=== PATIENT | female | born 1965 | race Caucasian/White ===

== ENCOUNTER 2018-04-28 12:23 | Inpatient (IN) | payer BC ==
[2018-04-28 12:32] LABS: O2 DELIVERY DEVICE ROOM AIR
[2018-04-28 13:02] LABS: O2 SATURATION ARTERIAL 74 % (95-98); PCO2 ARTERIAL 57 mm/Hg0 (35-45); PO2 ARTERIAL 41 mm/Hg (80-100)
[2018-04-28] MEDS ORDERED: Acetaminophen 325 MG Tab PO PRN (14:15)
[2018-04-28] MEDS ORDERED: Albuterol 8 GM Inhaler INH PRN (14:23)
[2018-04-28] MEDS: methylPREDNISolone Sodium Succinate 125 MG/2 ML SDV IVPUSH SCH (14:42)
[2018-04-28] MEDS: Nicotine 21 MG/24 Hr Patch TRDERM SCH (14:43)
[2018-04-28] MEDS: Enoxaparin 30 MG/0.3 ML Syringe SUBCUT SCH (14:43)
[2018-04-28] MEDS ORDERED: Levofloxacin/Dextrose 5%-Water 500 MG in Premix Bag 1 BAG IV ONE (14:45)
[2018-04-28] MEDS: Albuterol/Ipratropium 3.0-0.5 MG/3 ML Neb Soln NEB SCH ×2 (15:03→19:33)
[2018-04-28] MEDS: Sodium Chloride 0.9% 1,000 ML IV SCH (16:12)
[2018-04-28] MEDS: Formoterol/Mometasone 200-5 MCG 8.8 GM Inhaler IH SCH (19:34)
[2018-04-29] MEDS: Sodium Chloride 0.9% 1,000 ML IV SCH ×2 (04:40→19:39)
[2018-04-29] MEDS ORDERED: Albuterol 0.083% 2.5 MG/3 ML Neb Soln NEB PRN (08:45)
--- NOTE | 2018-04-29 08:51 | PCM.PN ---
- General Info Date of Service: 04/29/18 Admission Dx/Problem (Free Text): COPD Exacerbation URI Functional Status: Reports: Pain Controlled, Tolerating Diet. Denies: Ambulating - Review of Systems General: Reports: Weakness, Fatigue, Malaise. Denies: Fever HEENT: Reports: Sinus Congestion, Sore Throat Pulmonary: Reports: Shortness of Breath, Cough Cardiovascular: Denies: Chest Pain, Edema, Lightheadedness Gastrointestinal: Denies: Abdominal Pain, Nausea, Vomiting Genitourinary: Reports: No Symptoms Musculoskeletal: Reports: No Symptoms Skin: Reports: No Symptoms Neurological: Reports: No Symptoms - Patient Data Vitals - Most Recent: Last Vital Signs Temp 96.5 F 04/29/18 07:46 Pulse 83 04/29/18 07:46 Resp 18 04/29/18 07:46 BP 106/69 04/29/18 07:46 Pulse Ox 100 04/29/18 07:46 Weight - Most Recent: 86 lb I&O - Last 24 Hours: Intake & Output 04/28/18 04/29/18 04/29/18 22:59 06:59 14:59 Intake Total 935 Balance 935 Lab Results Last 24 Hours: Laboratory Results - last 24 hr 04/28/18 04/28/18 04/28/18 Range/Units 12:31 12:31 12:31 WBC 5.2 (5.0-10.0) 10^3/uL RBC 4.32 (4.00-5.50) 10^6/uL Hgb 14.8 (12.0-16.0) g/dL Hct 43.3 (37.0-47.0) % MCV 100.2 H (82.0-94.0) fL MCH 34.3 H (27.0-32.0) pg MCHC 34.2 (33.0-38.0) g/dL RDW Coeff of Talia 11.7 (11.0-15.0) % Plt Count 187 (150-400) 10^3/uL Neut % (Auto) 72.0 (35-85) % Lymph % (Auto) 16.3 (10-55) % [place] % (Auto) 10.9 (0-16) % Eos % (Auto) 0.6 (0-5) % Baso % (Auto) 0.2 (0-3) % Neut # (Auto) 3.76 (1.80-7.00) 10^3/uL Lymph # (Auto) 0.85 L (1.00-4.80) 10^3/uL [place] # (Auto) 0.57 (0.00-0.80) 10^3/uL Eos # (Auto) 0.03 (0.00-0.45) 10^3/uL Baso # (Auto) 0.01 10^3/uL D-Dimer, Quantitative (0.00-0.50) ABG pH 7.40 (7.35-7.45) ABG pCO2 57 H (35-45) mm/Hg0 ABG pO2 41 L (80-100) mm/Hg ABG HCO3 35.0 H (22.0-26.0) mm/L ABG O2 Saturation 74 L (95-98) % ABG Base Excess 10.0 H (-2.0-3.0) O2 Delivery Device Room air C-Reactive Protein 0.8 (0.2-0.8) mg/dL 04/28/18 Range/Units 14:30 WBC (5.0-10.0) 10^3/uL RBC (4.00-5.50) 10^6/uL Hgb (12.0-16.0) g/dL Hct (37.0-47.0) % MCV (82.0-94.0) fL MCH (27.0-32.0) pg MCHC (33.0-38.0) g/dL RDW Coeff of Talia (11.0-15.0) % Plt Count (150-400) 10^3/uL Neut % (Auto) (35-85) % Lymph % (Auto) (10-55) % [place] % (Auto) (0-16) % Eos % (Auto) (0-5) % Baso % (Auto) (0-3) % Neut # (Auto) (1.80-7.00) 10^3/uL Lymph # (Auto) (1.00-4.80) 10^3/uL [place] # (Auto) (0.00-0.80) 10^3/uL Eos # (Auto) (0.00-0.45) 10^3/uL Baso # (Auto) 10^3/uL D-Dimer, Quantitative < 0.19 (0.00-0.50) ABG pH (7.35-7.45) ABG pCO2 (35-45) mm/Hg0 ABG pO2 (80-100) mm/Hg ABG HCO3 (22.0-26.0) mm/L ABG O2 Saturation (95-98) % ABG Base Excess (-2.0-3.0) O2 Delivery Device C-Reactive Protein (0.2-0.8) mg/dL Med Orders - Current: Current Medications Acetaminophen (Tylenol) 650 mg PO Q4H PRN PRN Reason: Pain (Mild 1-3)/fever Albuterol (Ventolin Hfa) 0 gm INH QID PRN PRN Reason: Shortness of Breath Last Admin: 04/29/18 04:43 Dose: 2 puff Albuterol/Ipratropium (Duoneb 3.0-0.5 Mg/3 Ml) 3 ml NEB QIDRT [facility] Last Admin: 04/28/18 19:33 Dose: 3 ml Enoxaparin Sodium (Lovenox) 30 mg SUBCUT Q24H [facility] Last Admin: 04/28/18 14:43 Dose: 30 mg Levofloxacin/Dextrose 500 mg/ (Premix) 100 mls @ 100 mls/hr IV Q24H [facility] Sodium Chloride (Normal Saline) 1,000 mls @ 75 mls/hr IV ASDIRECTED [facility] Last Admin: 04/29/18 04:40 Dose: 75 mls/hr Methylprednisolone Sodium Succinate (Solu-Medrol) 62.5 mg IVPUSH Q24H [facility] Last Admin: 04/28/18 14:42 Dose: 62.5 mg Mometasone Furoate/Formoterol Fumar (Dulera 200-5 Mcg) 2 puff IH BIDRT [facility] Last Admin: 04/28/18 19:34 Dose: 2 puff Nicotine (Habitrol) 21 mg TRDERM DAILY [facility] Last Admin: 04/28/18 14:43 Dose: Not Given Discontinued Medications Levofloxacin/Dextrose 500 mg/ (Premix) 100 mls @ 100 mls/hr IV ONETIME ONE Stop: 04/28/18 15:44 Last Admin: 04/28/18 14:43 Dose: 100 mls/hr - Exam Quality Assessment: Supplemental Oxygen General: Alert, Oriented HEENT: Mucous Membr. Moist/[place] Neck: Supple Lungs: Decreased Breath Sounds, Other (increased work of breathing.) Cardiovascular: Regular Rate, Regular Rhythm GI/Abdominal Exam: Normal Bowel Sounds, Soft, Non-Tender Extremities: Normal Inspection, No Pedal Edema Skin: Warm, Dry Neurological: No New Focal Deficit - Problem List & Annotations (1) COPD exacerbation SNOMED Code(s): 521012710 Code(s): J44.1 - CHRONIC OBSTRUCTIVE PULMONARY DISEASE W (ACUTE) EXACERBATION Status: Acute Priority: High Current Visit: Yes (2) URI (upper respiratory infection) SNOMED Code(s): 30867094 Code(s): J06.9 - ACUTE UPPER RESPIRATORY INFECTION, UNSPECIFIED Status: Acute Priority: High Current Visit: Yes - Problem List Review Problem List Initiated/Reviewed/Updated: Yes - Assessment Assessment:: COPD Exacerbation URI - Plan Plan:: Patient continues to have increased work of breathing with eating, ambulating, conversation. She does have an ongoing cough, admits to wheezing at times. Oxygen sats 97-100% on 3 liters. No fever. Lung sounds diminished throughout. Will continue with IV Levaquin and Solu Medrol. Repeat labs this am. Continue to wean off oxygen to maintain sats. Inappropriate for discharge.
[2018-04-29 09:05] LABS: CHLORIDE,CL 106 mEq/L (98-106); SODIUM,NA 145 mEq/L (136-145)
[2018-04-29] MEDS: Albuterol/Ipratropium 3.0-0.5 MG/3 ML Neb Soln NEB SCH ×4 (09:06→19:39)
[2018-04-29] MEDS: Formoterol/Mometasone 200-5 MCG 8.8 GM Inhaler IH SCH ×2 (09:06→19:39)
[2018-04-29] MEDS: Nicotine 21 MG/24 Hr Patch TRDERM SCH (09:07)
[2018-04-29] MEDS ORDERED: Ibuprofen 200 MG Tab PO PRN (12:12)
[2018-04-29] MEDS: Levofloxacin/Dextrose 5%-Water 500 MG in Premix Bag 1 BAG IV SCH (13:39)
[2018-04-29] MEDS: methylPREDNISolone Sodium Succinate 125 MG/2 ML SDV IVPUSH SCH (13:39)
[2018-04-29] MEDS: Enoxaparin 30 MG/0.3 ML Syringe SUBCUT SCH (13:39)
[2018-04-30] MEDS: Albuterol/Ipratropium 3.0-0.5 MG/3 ML Neb Soln NEB SCH ×4 (07:19→19:54)
[2018-04-30] MEDS: Formoterol/Mometasone 200-5 MCG 8.8 GM Inhaler IH SCH ×2 (07:19→19:54)
[2018-04-30] MEDS: Nicotine 21 MG/24 Hr Patch TRDERM SCH (08:33)
--- NOTE | 2018-04-30 09:05 | PCM.PN ---
- General Info Date of Service: 04/30/18 Admission Dx/Problem (Free Text): COPD Exacerbation URI Functional Status: Reports: Pain Controlled, Tolerating Diet. Denies: Ambulating - Review of Systems General: Reports: Weakness, Fatigue. Denies: Fever, Malaise HEENT: Reports: No Symptoms Pulmonary: Reports: Shortness of Breath, Cough. Denies: Sputum Cardiovascular: Denies: Chest Pain, Edema, Lightheadedness Gastrointestinal: Denies: Abdominal Pain, Nausea, Vomiting Genitourinary: Reports: No Symptoms Musculoskeletal: Reports: No Symptoms Skin: Reports: No Symptoms Neurological: Reports: No Symptoms - Patient Data Vitals - Most Recent: Last Vital Signs Temp 95.2 F L 04/30/18 07:15 Pulse 101 H 04/30/18 07:15 Resp 19 04/30/18 07:15 BP 106/55 L 04/30/18 07:15 Pulse Ox 100 04/30/18 07:15 Weight - Most Recent: 86 lb I&O - Last 24 Hours: Intake & Output 04/29/18 04/30/18 04/30/18 22:59 06:59 14:59 Intake Total 1000 Balance 1000 Lab Results Last 24 Hours: Laboratory Results - last 24 hr 04/29/18 Range/Units 08:55 Sodium 145 (136-145) mEq/L Potassium 4.2 (3.5-5.0) mEq/L Chloride 106 (98-106) mEq/L Carbon Dioxide 36 H (21-32) mmol/L BUN 5 L (7-18) mg/dL Creatinine 0.5 L (0.6-1.0) mg/dL Est Cr Clr Drug Dosing 81.05 mL/min Estimated GFR (MDRD) > 60 (>=60) mL/min Glucose 101 H (75-99) mg/dL Calcium 8.2 L (8.4-10.1) mg/dL C-Reactive Protein 0.6 (0.2-0.8) mg/dL Med Orders - Current: Current Medications Acetaminophen (Tylenol) 650 mg PO Q4H PRN PRN Reason: Pain (Mild 1-3)/fever Albuterol (Ventolin Hfa) 0 gm INH QID PRN PRN Reason: Shortness of Breath Last Admin: 04/29/18 04:43 Dose: 2 puff Albuterol (Proventil Neb Soln) 2.5 mg NEB Q4H PRN PRN Reason: Dyspnea Albuterol/Ipratropium (Duoneb 3.0-0.5 Mg/3 Ml) 3 ml NEB QIDRT [facility] Last Admin: 04/30/18 07:19 Dose: 3 ml Enoxaparin Sodium (Lovenox) 30 mg SUBCUT Q24H [facility] Last Admin: 04/29/18 13:39 Dose: 30 mg Levofloxacin/Dextrose 500 mg/ (Premix) 100 mls @ 100 mls/hr IV Q24H [facility] Last Admin: 04/29/18 13:39 Dose: 100 mls/hr Sodium Chloride (Normal Saline) 1,000 mls @ 75 mls/hr IV ASDIRECTED [facility] Last Admin: 04/29/18 19:39 Dose: 75 mls/hr Ibuprofen (Motrin) 400 mg PO Q6H PRN PRN Reason: Headache Last Admin: 04/29/18 12:34 Dose: 400 mg Methylprednisolone Sodium Succinate (Solu-Medrol) 62.5 mg IVPUSH Q24H [facility] Last Admin: 04/29/18 13:39 Dose: 62.5 mg Mometasone Furoate/Formoterol Fumar (Dulera 200-5 Mcg) 2 puff IH BIDRT [facility] Last Admin: 04/30/18 07:19 Dose: 2 puff Nicotine (Habitrol) 21 mg TRDERM DAILY [facility] Last Admin: 04/30/18 08:33 Dose: Not Given Discontinued Medications Levofloxacin/Dextrose 500 mg/ (Premix) 100 mls @ 100 mls/hr IV ONETIME ONE Stop: 04/28/18 15:44 Last Admin: 04/28/18 14:43 Dose: 100 mls/hr - Exam Quality Assessment: Supplemental Oxygen General: Alert, Oriented HEENT: Mucous Membr. Moist/[place] Neck: Supple Lungs: Decreased Breath Sounds, Wheezing Cardiovascular: Regular Rate, Regular Rhythm GI/Abdominal Exam: Normal Bowel Sounds, Soft, Non-Tender Extremities: Normal Inspection, No Pedal Edema Skin: Warm, Dry Neurological: No New Focal Deficit - Problem List & Annotations (1) COPD exacerbation SNOMED Code(s): 304038786 Code(s): J44.1 - CHRONIC OBSTRUCTIVE PULMONARY DISEASE W (ACUTE) EXACERBATION Status: Acute Priority: High Current Visit: Yes (2) URI (upper respiratory infection) SNOMED Code(s): 59750236 Code(s): J06.9 - ACUTE UPPER RESPIRATORY INFECTION, UNSPECIFIED Status: Acute Priority: High Current Visit: Yes Qualifiers: URI type: unspecified viral URI Qualified Code(s): J06.9 - Acute upper respiratory infection, unspecified - Problem List Review Problem List Initiated/Reviewed/Updated: Yes - My Orders Last 24 Hours: My Active Orders 04/29/18 08:45 RT Aerosol Therapy [RC] ASDIRECTED Albuterol [Proventil Neb Soln] 2.5 mg NEB Q4H PRN 04/29/18 12:12 Ibuprofen [Motrin] 400 mg PO Q6H PRN 05/01/18 05:11 BASIC METABOLIC PANEL,BMP [CHEM] Routine CBC WITH AUTO DIFF [HEME] Routine VITAMIN B12 [CHEM] Routine - Assessment Assessment:: COPD Exacerbation URI - Plan Plan:: Patient continues to have increased work of breathing with eating, ambulating, conversation. She does have an ongoing cough, admits to wheezing at times. Oxygen sats 97-100% on 3 liters. No fever. Lung sounds diminished throughout. Will continue with IV Levaquin and Solu Medrol. Repeat labs this am. Continue to wean off oxygen to maintain sats. Inappropriate for discharge. 04-30-2018 Patient admits to feeling better today. Does still get tachypneic with eating and ambulating. Ongoing cough, nonproductive at this time. Have weaned her down to 1 1/2 liters of oxygen today, maintaining at 97%. Will continue to wean. Lung sound do have better air exchange today, still noted to have expiratory wheezing. Will continue with IV Levaquin and Solu Medrol. Will obtain a B12 and folic acid level due to high MCV. Encourage ambulation. Possible discharge tomorrow if able to be weaned down off the O2.
[2018-04-30] MEDS: Sodium Chloride 0.9% 1,000 ML IV SCH ×2 (09:11→23:24)
[2018-04-30] MEDS: methylPREDNISolone Sodium Succinate 125 MG/2 ML SDV IVPUSH SCH (13:32)
[2018-04-30] MEDS: Levofloxacin/Dextrose 5%-Water 500 MG in Premix Bag 1 BAG IV SCH (13:33)
[2018-04-30] MEDS: Enoxaparin 30 MG/0.3 ML Syringe SUBCUT SCH (13:34)
[2018-05-01] MEDS: Albuterol/Ipratropium 3.0-0.5 MG/3 ML Neb Soln NEB SCH ×2 (07:26→12:12)
[2018-05-01] MEDS: Formoterol/Mometasone 200-5 MCG 8.8 GM Inhaler IH SCH (07:28)
[2018-05-01 08:04] LABS: CHLORIDE,CL 107 mEq/L (98-106); SODIUM,NA 144 mEq/L (136-145)
[2018-05-01 12:01] VITALS: BP 116/61
[2018-05-01] MEDS: Nicotine 21 MG/24 Hr Patch TRDERM SCH (12:12)
--- NOTE | 2018-05-01 21:47 | PCM.DCSUM1 ---
Discharge Summary - Hospital Course Free Text/Narrative:: Patient presented to clinic to see Yvette Moy with increased chest congestion and cough. Had been taking OTC meds and her inhalers without getting much relief. Much increased shortness of breath versus her usual. She had noted increased wheezing and tightness in her chest. No fevers. CXR and labs done, essentially negative. Admitted for COPD Exacerbation. Started her on IV Levaquin, Solu Medrol and DuoNebs. ABGs show PO2 of 57. Negative d-dimer. Diagnosis: Stroke: No - Discharge Data Discharge Date: 05/01/18 Discharge Disposition: Home, Self-Care 01 Condition: Good - Discharge Diagnosis/Problem(s) (1) COPD exacerbation SNOMED Code(s): 982986174 ICD Code: J44.1 - CHRONIC OBSTRUCTIVE PULMONARY DISEASE W (ACUTE) EXACERBATION Status: Acute Priority: High (2) URI (upper respiratory infection) SNOMED Code(s): 47335324 ICD Code: J06.9 - ACUTE UPPER RESPIRATORY INFECTION, UNSPECIFIED Status: Acute Priority: High Qualifiers: URI type: unspecified viral URI Qualified Code(s): J06.9 - Acute upper respiratory infection, unspecified - Patient Summary/Data Complications: none Hospital Course: Patient has had improvement overall of her status since admission. Has much better air exchange, less wheezing since admission. Is ambulating in the halls , tolerating, but oxygen sats continue to drop while up. Unable to wean her off the oxygen. Able to maintain in the 90s with 1 liter of oxygen. Afebrile. Appetite fair. Labs have remained stable. Discussion has been held with her involving smoking cessation. Was given information for the smoking hotline. - Patient Instructions Diet: Usual Diet as Tolerated Activity: As Tolerated - Discharge Plan *PRESCRIPTION DRUG MONITORING PROGRAM REVIEWED*: No *COPY OF PRESCRIPTION DRUG MONITORING REPORT IN PATIENT ALANIS: No Prescriptions/Med Rec: Albuterol/Ipratropium [DuoNeb 3.0-0.5 MG/3 ML] 3 ml NEB QIDRT #1 box Levofloxacin [Levaquin] 500 mg PO DAILY #7 tab predniSONE [Prednisone] 20 mg PO DAILY #10 tablet Roflumilast [Daliresp] 250 mcg PO DAILY #28 tablet Home Medications: Home Meds Albuterol Sulfate [Proair Hfa] 2 puff INH QID PRN 04/28/18 [History] Budesonide/Formoterol Fumarate [Symbicort 160-4.5 Mcg Inhaler] 2 puff INH BID [History] Albuterol/Ipratropium [DuoNeb 3.0-0.5 MG/3 ML] 3 ml NEB QIDRT #1 box 05/01/18 [ Rx] Levofloxacin [Levaquin] 500 mg PO DAILY #7 tab 05/01/18 [Rx] Roflumilast [Daliresp] 250 mcg PO DAILY #28 tablet 05/01/18 [Rx] predniSONE [Prednisone] 20 mg PO DAILY #10 tablet 05/01/18 [Rx] Patient Handouts: Chronic Obstructive Pulmonary Disease, Upper Respiratory Infection, Adult Referrals: Yvette Moy PA-C [Primary Care Provider] - (Follow up with Yvette Moy in one week) - Discharge Summary/Plan Comment DC Time >30 min.: No Discharge Summary/Plan Comment: Patient will be discharged home on oxygen. She does drop to 88% on room air and as low as 74% with ambulating. Will need home oxygen to maintain her sats over 90%. Does require 2 liters at rest, 3 liters with activity. Continue DuoNebs QID Start Daliresp.. samples given Levaquin 500 mg daily fo r7 days Prednisone 40 mg daily for 5 days Consider switching to Spiriva at some point instead of DuoNebs Consider referral to pulmonology at her follow up visit with Yvette Moy next week. - General Info Date of Service: 05/01/18 Admission Dx/Problem (Free Text: COPD Exacerbation URI Functional Status: Reports: Pain Controlled, Tolerating Diet, Ambulating - Review of Systems General: Reports: Weakness, Fatigue. Denies: Fever HEENT: Reports: Sinus Congestion Pulmonary: Reports: Shortness of Breath, Cough, Wheezing Cardiovascular: Denies: Chest Pain, Edema, Lightheadedness Gastrointestinal: Denies: Abdominal Pain, Nausea, Vomiting Genitourinary: Reports: No Symptoms Musculoskeletal: Reports: No Symptoms Skin: Reports: No Symptoms Neurological: Reports: No Symptoms - Patient Data Vitals - Most Recent: Last Vital Signs Temp 98.3 F 05/01/18 12:00 Pulse 80 05/01/18 12:00 Resp 16 05/01/18 12:00 BP 116/61 05/01/18 12:00 Pulse Ox 95 05/01/18 12:00 Weight - Most Recent: 86 lb Lab Results - Last 24 hrs: Laboratory Results - last 24 hr 05/01/18 05/01/18 Range/Units 07:05 07:05 WBC 5.4 (5.0-10.0) 10^3/uL RBC 3.72 L (4.00-5.50) 10^6/uL Hgb 12.3 (12.0-16.0) g/dL Hct 38.5 (37.0-47.0) % MCV 103.5 H (82.0-94.0) fL MCH 33.1 H (27.0-32.0) pg MCHC 31.9 L (33.0-38.0) g/dL RDW Coeff of Talia 11.6 (11.0-15.0) % Plt Count 204 (150-400) 10^3/uL Neut % (Auto) 60.1 (35-85) % Lymph % (Auto) 26.6 (10-55) % [place] % (Auto) 11.4 (0-16) % Eos % (Auto) 1.7 (0-5) % Baso % (Auto) 0.2 (0-3) % Neut # (Auto) 3.23 (1.80-7.00) 10^3/uL Lymph # (Auto) 1.43 (1.00-4.80) 10^3/uL [place] # (Auto) 0.61 (0.00-0.80) 10^3/uL Eos # (Auto) 0.09 (0.00-0.45) 10^3/uL Baso # (Auto) 0.01 10^3/uL Sodium 144 (136-145) mEq/L Potassium 3.9 (3.5-5.0) mEq/L Chloride 107 H (98-106) mEq/L Carbon Dioxide 35 H (21-32) mmol/L BUN 7 (7-18) mg/dL Creatinine 0.4 L (0.6-1.0) mg/dL Est Cr Clr Drug Dosing 101.31 mL/min Estimated GFR (MDRD) > 60 (>=60) mL/min Glucose 99 (75-99) mg/dL Calcium 8.1 L (8.4-10.1) mg/dL Vitamin B12 599 (193-986) PG/ML Med Orders - Current: Current Medications Discontinued Medications Acetaminophen (Tylenol) 650 mg PO Q4H PRN PRN Reason: Pain (Mild 1-3)/fever Albuterol (Ventolin Hfa) 0 gm INH QID PRN PRN Reason: Shortness of Breath Last Admin: 04/29/18 04:43 Dose: 2 puff Albuterol (Proventil Neb Soln) 2.5 mg NEB Q4H PRN PRN Reason: Dyspnea Albuterol/Ipratropium (Duoneb 3.0-0.5 Mg/3 Ml) 3 ml NEB QIDRT [facility] Last Admin: 05/01/18 12:12 Dose: 3 ml Enoxaparin Sodium (Lovenox) 30 mg SUBCUT Q24H [facility] Last Admin: 04/30/18 13:34 Dose: 30 mg Levofloxacin/Dextrose 500 mg/ (Premix) 100 mls @ 100 mls/hr IV Q24H [facility] Last Admin: 04/30/18 13:33 Dose: 100 mls/hr Sodium Chloride (Normal Saline) 1,000 mls @ 75 mls/hr IV ASDIRECTED [facility] Last Admin: 04/30/18 23:24 Dose: 75 mls/hr Levofloxacin/Dextrose 500 mg/ (Premix) 100 mls @ 100 mls/hr IV ONETIME ONE Stop: 04/28/18 15:44 Last Admin: 04/28/18 14:43 Dose: 100 mls/hr Ibuprofen (Motrin) 400 mg PO Q6H PRN PRN Reason: Headache Last Admin: 04/29/18 12:34 Dose: 400 mg Methylprednisolone Sodium Succinate (Solu-Medrol) 62.5 mg IVPUSH Q24H [facility] Last Admin: 04/30/18 13:32 Dose: 62.5 mg Mometasone Furoate/Formoterol Fumar (Dulera 200-5 Mcg) 2 puff IH BIDRT [facility] Last Admin: 05/01/18 07:28 Dose: 2 puff Nicotine (Habitrol) 21 mg TRDERM DAILY [facility] Last Admin: 05/01/18 12:12 Dose: Not Given - Exam Quality Assessment: Reports: Supplemental Oxygen General: Reports: Alert, Oriented HEENT: Reports: Mucous Membr. Moist/[place] Neck: Reports: Supple Lungs: Reports: Decreased Breath Sounds, Wheezing Cardiovascular: Reports: Regular Rate, Regular Rhythm GI/Abdominal Exam: Normal Bowel Sounds, Soft, Non-Tender Skin: Reports: Warm, Dry Neurological: Reports: No New Focal Deficit
== END 2018-05-01 13:05 | disposition home or self-care (01) | DRG 140 ==
LOC: CC.MS 12:23 → CC.FCMC 12:23 → CC.MS 13:20 → UNDOADMIN 13:20 → CC.MS 14:15
PROVIDERS: ADMIT Physician Assistant Medical; ATTEND Family Medicine
DX: J44.1 Chronic obstructive pulmonary disease with (acute) exacerbation (principal); J06.9 Acute upper respiratory infection, unspecified; Z88.8 Allergy status to other drugs, medicaments and biological substances; Z79.899 Other long term (current) drug therapy; Z82.3 Family history of stroke; Z82.49 Family history of ischemic heart disease and other diseases of the circulatory system; F17.210 Nicotine dependence, cigarettes, uncomplicated
CPT/HCPCS: 36415; 36600; 71046; 80048; 82103; 82607; 82803; 85025; 85379; 86140; 94060; 94640; A9270-GY; J1650; J1956; J2930; J7030

== ENCOUNTER 2019-11-22 04:38 | Inpatient (IN) | payer SELFPAY ==
[2019-11-22] MEDS ORDERED: Albuterol/Ipratropium 3.0-0.5 MG/3 ML Neb Soln NEB ONE (04:52)
[2019-11-22] MEDS ORDERED: Midazolam 1 MG/ML 2 ML SDV ONE (05:08)
[2019-11-22] MEDS ORDERED: Lidocaine 1% 20 ML MDV ONE (05:12)
[2019-11-22 05:19] LABS: BICARBONATE,ARTERIAL 32.8 mm/L (22.0-26.0); O2 DELIVERY DEVICE NASAL CANNULA; O2 SATURATION ARTERIAL 85 % (95-98); PCO2 ARTERIAL 65 mm/Hg0 (35-45); PO2 ARTERIAL 56 mm/Hg (80-100)
[2019-11-22 05:19] LABS: CHLORIDE,CL 105 mEq/L (98-106); SODIUM,NA 144 mEq/L (136-145)
--- NOTE | 2019-11-22 05:23 | EDM.PDOC ---
ED HPI GENERAL MEDICAL PROBLEM - General Chief Complaint: Respiratory Problem Stated Complaint: "I can't catch my breath" Time Seen by Provider: 11/22/19 04:43 Source of Information: Reports: Patient History Limitations: Reports: No Limitations - History of Present Illness INITIAL COMMENTS - FREE TEXT/NARRATIVE: Patient to the emergency department complaint of increasing shortness of breath. The patient does have a history of chronic COPD does not wear oxygen at home. The patient advises that at 2 PM yesterday symptoms started. The patient denied any chest pain denied any ear, nose, throat symptoms denied any fever chills denied any abdominal pain no nausea no vomiting no diarrhea no constipation no rash. Patient's oxygen saturation on room air when she came into the emergency department was in the upper 60s with a good Bleph Onset: Sudden Duration: Hour(s): Location: Reports: Chest Severity: Severe Improves with: Reports: None Worsens with: Reports: Other (Activity) Associated Symptoms: Reports: Cough, Shortness of Breath. Denies: Chest Pain, Diaphoresis, Fever/Chills, Nausea/Vomiting, Weakness Treatments YOUTH DIRECTOR: Reports: Other (see below) (None) - Related Data Allergies Allergy/AdvReac Type Severity Reaction Status Date / Time morphine Allergy Rash Verified 11/22/19 04:49 Home Meds: Home Meds Albuterol Sulfate [Proair Hfa] 2 puff INH QID PRN 04/28/18 [History] Budesonide/Formoterol Fumarate [Symbicort 160-4.5 Mcg Inhaler] 2 puff INH BID [History] Albuterol/Ipratropium [DuoNeb 3.0-0.5 MG/3 ML] 3 ml NEB QIDRT #1 box 05/01/18 [ Rx] Past Medical History Respiratory History: Reports: COPD Other Respiratory History: Hx of emphysema and hx of collapsed lung. Neurological History: Reports: Migraines Social & Family History - Family History Family Medical History: Noncontributory ED ROS GENERAL - Review of Systems Review Of Systems: See Below Constitutional: Reports: No Symptoms. Denies: Fever, Chills HEENT: Reports: No Symptoms Respiratory: Reports: Shortness of Breath, Wheezing, Cough Cardiovascular: Reports: No Symptoms. Denies: Chest Pain Endocrine: Reports: No Symptoms GI/Abdominal: Reports: No Symptoms. Denies: Abdominal Pain, Nausea, Vomiting : Reports: No Symptoms Musculoskeletal: Reports: No Symptoms. Denies: Neck Pain, Back Pain Skin: Reports: No Symptoms. Denies: Bruising, Rash, Erythema Neurological: Reports: No Symptoms. Denies: Headache Psychiatric: Reports: No Symptoms ED EXAM, GENERAL - Physical Exam Exam: See Below Exam Limited By: No Limitations General Appearance: Alert, WD/WN, Mild Distress, Thin Ears: Normal External Exam, Normal Canal, Hearing Grossly Normal, Normal TMs Nose: Normal Inspection, Normal Mucosa Throat/Mouth: Normal Inspection, Normal Lips, Normal Oropharynx, Normal Voice, No Airway Compromise Head: Atraumatic, Normocephalic Neck: Normal Inspection, Supple, Non-Tender, Full Range of Motion Respiratory/Chest: Other (Decreased lung sounds on the left with some scattered expiratory wheezing on the right). No: Lungs Clear Cardiovascular: Normal Peripheral Pulses, Regular Rate, Rhythm, No Murmur Peripheral Pulses: 2+: Radial (L), Radial (R) GI/Abdominal: Soft, Non-Tender Back Exam: Normal Inspection, Full Range of Motion Extremities: Normal Inspection, Normal Range of Motion, Non-Tender, No Pedal Edema, Normal Capillary Refill Neurological: Alert, Oriented, Normal Cognition, Normal Gait, No Motor/Sensory Deficits Psychiatric: Normal Affect, Normal Mood Skin Exam: Warm, Dry, Intact, Normal Color, No Rash ED RESPIRATORY PROCEDURES - Chest Tube Insertion Chest Tube Location: Left Site: Mid Axillary Line Tube Size: 28Fr Skin Prep: CDC Guidelines Followed, Chlorhexidine Local Anesthesia - Lidocaine (Xylocaine): 1% Plain Local Anesthetic Volume: Other (10 mL) [place] of Air [place]: Yes Number of Attempts: 1 Tube Sutured to Skin: Yes Post procedure tube position confirmed by: by CXR, by Provider (The pneumothorax is almost completely resolved there is probably less than 5% apical pneumothorax left which I suspect will resolve quickly) Tube Connected to Suction: Yes EKG INTERPRETATION EKG Date: 11/22/19 Time: 05:08 Rhythm: NSR [place]: Normal P-Wave: Present QRS: Normal ST-T: Normal QT: Normal EKG Interpretation Comments: Twelve-lead EKG shows an underlying sinus rhythm with a ventricular rate of 95 there is some wandering baseline with some mild 60 cycle interference, there is also poor R wave progression. There is no ischemia or injury noted. Course - Vital Signs Text/Narrative:: 0600 The patient was evaluated in the emergency department, the patient had a large left pneumothorax. The patient was advised of this pneumothorax and advised the need for a chest tube. The risk and benefits was explained to the patient and the patient agreed to proceed to have the chest tube inserted. See the procedure note for details of chest tube insertion. The patient's CBC is essentially negative, general chemistries are also essentially negative the patient's blood gas on O2 at 5 L nasal cannula showed a pH of 7.31, CO2 of 65, O2 of 56 and 85%. The post chest x-ray does show almost completely expanded left lung. The patient advises she is able to breathe more easily. The patient did receive hand-held nebulizer DuoNeb, the patient is going to be given Rocephin 2 g IV now and 1 g every 24 hours. She also be given Solu- Medrol 125 mg now and 60 mg IV every 8. The patient requests not to be transferred to any other facility, I explained to her the benefits and the risk of being transferred as well as staying at this facility and she accepts the risk of staying here knowing that there is no surgeon. I did advise her that if she did not improve that we would have really no option but to transfer. And she agrees. Last Recorded V/S: Last Vital Signs Temp 36.2 C 11/22/19 04:53 Pulse 89 11/22/19 04:55 Resp 22 H 11/22/19 04:55 BP 110/62 11/22/19 04:55 Pulse Ox 90 L 11/22/19 04:55 - Orders/Labs/Meds Orders: Active Orders 24 hr Category Date Time Status Patient Status Manage Transfer [TRANSFER] Routine ADT 11/22/19 06:12 Active Patient Status [ADT] Routine ADT 11/22/19 06:20 Active Cardiac Monitoring [RC] CONTINUOUS Care 11/22/19 06:21 Active Chest Tube Management [RC] ASDIRECTED Care 11/22/19 05:31 Active Height and Weight [RC] UPON Care 11/22/19 06:14 Active Intake and Output [RC] QSHIFT Care 11/22/19 06:21 Active Oxygen Therapy Adult [Oxygen Therapy, ED] [RC] Care 11/22/19 04:52 Active ASDIRECTED Oxygen Therapy [RC] PRN Care 11/22/19 06:20 Active Peripheral IV Care [RC] . DIRECTED Care 11/22/19 06:21 Active Pulse Oximetry [RC] CONTINUOUS Care 11/22/19 06:21 Active RT Aerosol Therapy [RC] ASDIRECTED Care 11/22/19 04:52 Active RT Aerosol Therapy [RC] ASDIRECTED Care 11/22/19 06:22 Active Up to Chair [RC] ASDIRECTED Care 11/22/19 06:14 Active VTE/DVT Education [RC] PER UNIT ROUTINE Care 11/22/19 06:20 Active Vital Signs [RC] Q4H Care 11/22/19 06:20 Active Regular Diet [DIET] Diet 11/22/19 Breakfast Active Chest 1V Frontal [CR] AM Exams 11/23/19 05:11 Ordered Chest 1V Frontal [CR] Routine Exams 11/22/19 Taken Chest 2V [CR] Stat Exams 11/22/19 04:50 Taken BASIC METABOLIC PANEL,BMP [CHEM] AM Lab 11/23/19 05:11 Ordered CBC WITH AUTO DIFF [HEME] AM Lab 11/23/19 05:11 Ordered Albuterol/Ipratropium [DuoNeb 3.0-0.5 MG/3 ML] Med 11/22/19 06:15 Active 3 ml NEB Q6H Albuterol/Ipratropium [DuoNeb 3.0-0.5 MG/3 ML] Med 11/22/19 08:00 Active 3 ml NEB QIDRT Enoxaparin [Lovenox] Med 11/22/19 06:15 Active 30 mg SUBCUT Q24H Ketorolac [Toradol] Med 11/22/19 06:14 Active 30 mg IV Q6H PRN Ondansetron [Zofran ODT] Med 11/22/19 06:14 Active 4 mg PO Q6H PRN Sodium Chloride 0.9% [Normal Saline] 1,000 ml Med 11/22/19 06:15 Active IV ASDIRECTED Sodium Chloride 0.9% [Saline Flush] Med 11/22/19 06:14 Active 10 ml FLUSH ASDIRECTED PRN cefTRIAXone [Rocephin] Med 11/23/19 06:30 Active 1 gm IVPUSH Q24H methylPREDNISolone Sod Succ [Solu-MEDROL] Med 11/22/19 06:30 Active 60 mg IVPUSH Q8H oxyCODONE Med 11/22/19 06:14 Active 5 mg PO Q4H PRN Peripheral IV Insertion Adult [OM.PC] Routine Oth 11/22/19 06:14 Ordered Resuscitation Status Routine Resus Stat 11/22/19 06:14 Ordered Medication Orders Albuterol/Ipratropium (Duoneb 3.0-0.5 Mg/3 Ml) 3 ml NEB Q6H LETI Albuterol/Ipratropium (Duoneb 3.0-0.5 Mg/3 Ml) 3 ml NEB QIDRT LETI Ceftriaxone Sodium (Rocephin) 1 gm IVPUSH Q24H LETI Enoxaparin Sodium (Lovenox) 30 mg SUBCUT Q24H LETI Sodium Chloride (Normal Saline) 1,000 mls @ 80 mls/hr IV ASDIRECTED LETI Ketorolac Tromethamine (Toradol) 30 mg IV Q6H PRN PRN Reason: Pain (moderate 4-6) Methylprednisolone Sodium Succinate (Solu-Medrol) 60 mg IVPUSH Q8H LETI Ondansetron HCl (Zofran Odt) 4 mg PO Q6H PRN PRN Reason: nausea, able to take PO Oxycodone HCl (Oxycodone) 5 mg PO Q4H PRN PRN Reason: Pain (moderate 4-6) Sodium Chloride (Saline Flush) 10 ml FLUSH ASDIRECTED PRN PRN Reason: Keep Vein Open Labs: Laboratory Tests 11/22/19 11/22/19 11/22/19 Range/Units 04:55 04:55 04:55 WBC 5.0 (5.0-10.0) 10^3/uL RBC 4.46 (4.00-5.50) 10^6/uL Hgb 14.8 (12.0-16.0) g/dL Hct 45.2 (37.0-47.0) % MCV 101.3 H (82.0-94.0) fL MCH 33.2 H (27.0-32.0) pg MCHC 32.7 L (33.0-38.0) g/dL RDW Coeff of Talia 11.8 (11.0-15.0) % Plt Count 195 (150-400) 10^3/uL Neut % (Auto) 78.1 (35-85) % Lymph % (Auto) 14.7 (10-55) % [place] % (Auto) 6.8 (0-16) % Eos % (Auto) 0.2 (0-5) % Baso % (Auto) 0.2 (0-3) % Neut # (Auto) 3.92 (1.80-7.00) 10^3/uL Lymph # (Auto) 0.74 L (1.00-4.80) 10^3/uL [place] # (Auto) 0.34 (0.00-0.80) 10^3/uL Eos # (Auto) 0.01 (0.00-0.45) 10^3/uL Baso # (Auto) 0.01 10^3/uL PT 11.4 (9.7-12.3) SEC INR 1.11 (0.92-1.18) APTT 26.2 (23.2-32.3) SEC ABG pH (7.35-7.45) ABG pCO2 (35-45) mm/Hg0 ABG pO2 (80-100) mm/Hg ABG HCO3 (22.0-26.0) mm/L ABG O2 Saturation (95-98) % ABG Base Excess (-2.0-3.0) O2 Delivery Device Sodium 144 (136-145) mEq/L Potassium 3.7 (3.5-5.0) mEq/L Chloride 105 (98-106) mEq/L Carbon Dioxide 32 (21-32) mmol/L BUN 11 D (7-18) mg/dL Creatinine 0.5 L (0.6-1.0) mg/dL Est Cr Clr Drug Dosing 101.31 mL/min Estimated GFR (MDRD) > 60 (>=60) mL/min Glucose 129 H D (75-99) mg/dL Calcium 8.3 L (8.4-10.1) mg/dL Total Bilirubin 0.4 (0.0-1.0) mg/dL AST 16 (15-37) U/L ALT 23 (12-78) U/L Alkaline Phosphatase 51 (46-116) U/L Lactate Dehydrogenase 174 (100-190) U/L Creatine Kinase 63 (21-215) U/L Troponin I < 0.017 (0.00-0.06) ng/mL Total Protein 6.7 (6.4-8.2) g/dL Albumin 3.9 (3.4-5.0) g/dL 11/22/19 Range/Units 05:15 WBC (5.0-10.0) 10^3/uL RBC (4.00-5.50) 10^6/uL Hgb (12.0-16.0) g/dL Hct (37.0-47.0) % MCV (82.0-94.0) fL MCH (27.0-32.0) pg MCHC (33.0-38.0) g/dL RDW Coeff of Talia (11.0-15.0) % Plt Count (150-400) 10^3/uL Neut % (Auto) (35-85) % Lymph % (Auto) (10-55) % [place] % (Auto) (0-16) % Eos % (Auto) (0-5) % Baso % (Auto) (0-3) % Neut # (Auto) (1.80-7.00) 10^3/uL Lymph # (Auto) (1.00-4.80) 10^3/uL [place] # (Auto) (0.00-0.80) 10^3/uL Eos # (Auto) (0.00-0.45) 10^3/uL Baso # (Auto) 10^3/uL PT (9.7-12.3) SEC INR (0.92-1.18) APTT (23.2-32.3) SEC ABG pH 7.31 L (7.35-7.45) ABG pCO2 65 H (35-45) mm/Hg0 ABG pO2 56 L (80-100) mm/Hg ABG HCO3 32.8 H (22.0-26.0) mm/L ABG O2 Saturation 85 L (95-98) % ABG Base Excess 7.0 H (-2.0-3.0) O2 Delivery Device Nasal cannula Sodium (136-145) mEq/L Potassium (3.5-5.0) mEq/L Chloride (98-106) mEq/L Carbon Dioxide (21-32) mmol/L BUN (7-18) mg/dL Creatinine (0.6-1.0) mg/dL Est Cr Clr Drug Dosing mL/min Estimated GFR (MDRD) (>=60) mL/min Glucose (75-99) mg/dL Calcium (8.4-10.1) mg/dL Total Bilirubin (0.0-1.0) mg/dL AST (15-37) U/L ALT (12-78) U/L Alkaline Phosphatase (46-116) U/L Lactate Dehydrogenase (100-190) U/L Creatine Kinase (21-215) U/L Troponin I (0.00-0.06) ng/mL Total Protein (6.4-8.2) g/dL Albumin (3.4-5.0) g/dL Meds: Medications Generic Name Dose Route Start Last Admin Trade Name Freq PRN Reason Stop Dose Admin Albuterol/Ipratropium 3 ml 11/22/19 06:15 Duoneb 3.0-0.5 Mg/3 Ml NEB Q6H LETI Albuterol/Ipratropium 3 ml 11/22/19 08:00 Duoneb 3.0-0.5 Mg/3 Ml NEB QIDRT LETI Ceftriaxone Sodium 1 gm 11/23/19 06:30 Rocephin IVPUSH Q24H LETI Enoxaparin Sodium 30 mg 11/22/19 06:15 Lovenox SUBCUT Q24H LETI Sodium Chloride 1,000 mls @ 80 mls/hr 11/22/19 06:15 Normal Saline IV ASDIRECTED LETI Ketorolac Tromethamine 30 mg 11/22/19 06:14 Toradol IV Q6H PRN Pain (moderate 4-6) Methylprednisolone Sodium Succinate 60 mg 11/22/19 06:30 Solu-Medrol IVPUSH Q8H LETI Ondansetron HCl 4 mg 11/22/19 06:14 Zofran Odt PO Q6H PRN nausea, able to take PO Oxycodone HCl 5 mg 11/22/19 06:14 Oxycodone PO Q4H PRN Pain (moderate 4-6) Sodium Chloride 10 ml 11/22/19 06:14 Saline Flush FLUSH ASDIRECTED PRN Keep Vein Open Discontinued Medications Generic Name Dose Route Start Last Admin Trade Name Freq PRN Reason Stop Dose Admin Albuterol/Ipratropium 6 ml 11/22/19 04:52 11/22/19 05:54 Duoneb 3.0-0.5 Mg/3 Ml NEB 11/22/19 04:53 6 ml ONETIME ONE Administration Ceftriaxone Sodium 2 gm 11/22/19 06:11 Rocephin IVPUSH 11/22/19 06:12 ONETIME ONE Lidocaine HCl Confirm 11/22/19 05:12 11/22/19 05:57 Xylocaine 1% Administered 11/22/19 05:13 Not Given Dose 20 ml .ROUTE .STK-MED ONE Lidocaine HCl 20 ml 11/22/19 05:55 11/22/19 05:57 Xylocaine 1% INJECT 11/22/19 05:56 20 ml ONETIME ONE Administration Methylprednisolone Sodium Succinate 125 mg 11/22/19 06:15 Solu-Medrol IVPUSH 11/22/19 06:16 ONETIME ONE Midazolam HCl Confirm 11/22/19 05:08 11/22/19 05:54 Versed 1 Mg/Ml Administered 11/22/19 05:09 Not Given Dose 6 mg .ROUTE .STK-MED ONE Midazolam HCl 2.5 mg 11/22/19 05:33 11/22/19 05:56 Versed 1 Mg/Ml IVPUSH 11/22/19 05:34 2.5 mg ONETIME ONE Administration Departure - Departure Time of Disposition: 06:15 Disposition: Admitted As Inpatient 66 Condition: Good Clinical Impression: Pneumothorax, left, COPD (chronic obstructive pulmonary disease), Shortness of breath, Hypoxia - Discharge Information *PRESCRIPTION DRUG MONITORING PROGRAM REVIEWED*: Not Applicable *COPY OF PRESCRIPTION DRUG MONITORING REPORT IN PATIENT ALANIS: Not Applicable Referrals: Yvette Moy PA-C [Primary Care Provider] - Forms: ED Department Discharge Critical Care Note - Critical Care Note Total Time (mins): 30 Comments: See course notes and plan for details as well as procedure note Sepsis Event Note - Focused Exam Vital Signs: Vital Signs Temp Pulse Resp BP Pulse Ox 11/22/19 04:55 89 22 H 110/62 90 L 11/22/19 04:53 36.2 C 92 26 H 117/78 67 L Date Exam was Performed: 11/22/19 Time Exam was Performed: 06:32 - Problem List & Annotations (1) COPD (chronic obstructive pulmonary disease) SNOMED Code(s): 86250663 Code(s): J44.9 - CHRONIC OBSTRUCTIVE PULMONARY DISEASE, UNSPECIFIED Status : Acute Priority: High Current Visit: Yes Qualifiers: Emphysema type: unspecified (2) Hypoxia SNOMED Code(s): 922024875 Code(s): R09.02 - HYPOXEMIA Status: Acute Priority: High Current Visit : Yes (3) Pneumothorax, left SNOMED Code(s): 649920048 Code(s): J93.9 - PNEUMOTHORAX, UNSPECIFIED Status: Acute Priority: High Current Visit: Yes (4) SOB (shortness of breath) SNOMED Code(s): 239089614 Code(s): R06.02 - SHORTNESS OF BREATH Status: Acute Priority: High Current Visit: Yes - Problem List Review Problem List Initiated/Reviewed/Updated: Yes - My Orders Last 24 Hours: My Active Orders 11/22/19 Chest 1V Frontal [CR] Routine 11/22/19 04:50 Chest 2V [CR] Stat 11/22/19 04:52 Oxygen Therapy Adult [Oxygen Therapy, ED] [RC] ASDIRECTED RT Aerosol Therapy [RC] ASDIRECTED 11/22/19 05:31 Chest Tube Management [RC] ASDIRECTED 11/22/19 06:12 Patient Status Manage Transfer [TRANSFER] Routine 11/22/19 06:14 Height and Weight [RC] UPON Up to Chair [RC] ASDIRECTED Ketorolac [Toradol] 30 mg IV Q6H PRN Ondansetron [Zofran ODT] 4 mg PO Q6H PRN Sodium Chloride 0.9% [Saline Flush] 10 ml FLUSH ASDIRECTED PRN oxyCODONE 5 mg PO Q4H PRN Peripheral IV Insertion Adult [OM.PC] Routine Resuscitation Status Routine 11/22/19 06:15 Albuterol/Ipratropium [DuoNeb 3.0-0.5 MG/3 ML] 3 ml NEB Q6H Enoxaparin [Lovenox] 30 mg SUBCUT Q24H Sodium Chloride 0.9% [Normal Saline] 1,000 ml IV ASDIRECTED 11/22/19 06:20 Patient Status [ADT] Routine Oxygen Therapy [RC] PRN VTE/DVT Education [RC] PER UNIT ROUTINE Vital Signs [RC] Q4H 11/22/19 06:21 Cardiac Monitoring [RC] CONTINUOUS Intake and Output [RC] QSHIFT Peripheral IV Care [RC] . DIRECTED Pulse Oximetry [RC] CONTINUOUS 11/22/19 06:22 RT Aerosol Therapy [RC] ASDIRECTED 11/22/19 06:30 methylPREDNISolone Sod Succ [Solu-MEDROL] 60 mg IVPUSH Q8H 11/22/19 08:00 Albuterol/Ipratropium [DuoNeb 3.0-0.5 MG/3 ML] 3 ml NEB QIDRT 11/22/19 Breakfast Regular Diet [DIET] 11/23/19 05:11 Chest 1V Frontal [CR] AM BASIC METABOLIC PANEL,BMP [CHEM] AM CBC WITH AUTO DIFF [HEME] AM 11/23/19 06:30 cefTRIAXone [Rocephin] 1 gm IVPUSH Q24H - Assessment/Plan Admission H&P: Please use this note as an admission H&P Last 24 Hours: My Active Orders 11/22/19 Chest 1V Frontal [CR] Routine 11/22/19 04:50 Chest 2V [CR] Stat 11/22/19 04:52 Oxygen Therapy Adult [Oxygen Therapy, ED] [RC] ASDIRECTED RT Aerosol Therapy [RC] ASDIRECTED 11/22/19 05:31 Chest Tube Management [RC] ASDIRECTED 11/22/19 06:12 Patient Status Manage Transfer [TRANSFER] Routine 11/22/19 06:14 Height and Weight [RC] UPON Up to Chair [RC] ASDIRECTED Ketorolac [Toradol] 30 mg IV Q6H PRN Ondansetron [Zofran ODT] 4 mg PO Q6H PRN Sodium Chloride 0.9% [Saline Flush] 10 ml FLUSH ASDIRECTED PRN oxyCODONE 5 mg PO Q4H PRN Peripheral IV Insertion Adult [OM.PC] Routine Resuscitation Status Routine 11/22/19 06:15 Albuterol/Ipratropium [DuoNeb 3.0-0.5 MG/3 ML] 3 ml NEB Q6H Enoxaparin [Lovenox] 30 mg SUBCUT Q24H Sodium Chloride 0.9% [Normal Saline] 1,000 ml IV ASDIRECTED 11/22/19 06:20 Patient Status [ADT] Routine Oxygen Therapy [RC] PRN VTE/DVT Education [RC] PER UNIT ROUTINE Vital Signs [RC] Q4H 11/22/19 06:21 Cardiac Monitoring [RC] CONTINUOUS Intake and Output [RC] QSHIFT Peripheral IV Care [RC] . DIRECTED Pulse Oximetry [RC] CONTINUOUS 11/22/19 06:22 RT Aerosol Therapy [RC] ASDIRECTED 11/22/19 06:30 methylPREDNISolone Sod Succ [Solu-MEDROL] 60 mg IVPUSH Q8H 11/22/19 08:00 Albuterol/Ipratropium [DuoNeb 3.0-0.5 MG/3 ML] 3 ml NEB QIDRT 11/22/19 Breakfast Regular Diet [DIET] 11/23/19 05:11 Chest 1V Frontal [CR] AM BASIC METABOLIC PANEL,BMP [CHEM] AM CBC WITH AUTO DIFF [HEME] AM 11/23/19 06:30 cefTRIAXone [Rocephin] 1 gm IVPUSH Q24H Plan: The patient will be admitted to the floor, the patient will have O2 at 2 L nasal cannula to keep the oxygen saturation over 92%, the patient's chest tube will be to 20 cm of water seal suction, the patient will have Rocephin 2 g IV now and then 1 g every 24 hours the patient will also have Solu-Medrol 125 mg IV now and 60 mg IV every 8 hours the patient will also have hand-held nebulizers every 4 hours of DuoNeb. The patient will have a CBC and general chemistries as well as a AP chest repeated tomorrow. The patient will be continuously evaluated and changes to the clinical course will be made as needed.
[2019-11-22] MEDS ORDERED: Midazolam 1 MG/ML 2 ML SDV IVPUSH ONE (05:33)
[2019-11-22] MEDS ORDERED: Lidocaine 1% 20 ML MDV INJECT ONE (05:55)
[2019-11-22] MEDS ORDERED: cefTRIAXone 2 GM Vial IVPUSH ONE (06:11)
[2019-11-22] MEDS ORDERED: Ondansetron 4 MG Tab.DIS PO PRN (06:14)
[2019-11-22] MEDS ORDERED: Sodium Chloride 0.9% 10 ML Syringe FLUSH PRN (06:14)
[2019-11-22] MEDS ORDERED: oxyCODONE 5 MG Tab PO PRN (06:14)
[2019-11-22] MEDS ORDERED: Enoxaparin 30 MG/0.3 ML Syringe SUBCUT SCH (06:15)
[2019-11-22] MEDS ORDERED: methylPREDNISolone Sodium Succinate 125 MG/2 ML SDV IVPUSH ONE (06:15)
[2019-11-22] MEDS ORDERED: Albuterol/Ipratropium 3.0-0.5 MG/3 ML Neb Soln NEB SCH (06:15)
[2019-11-22] MEDS ORDERED: methylPREDNISolone Sodium Succinate 125 MG/2 ML SDV IVPUSH SCH (06:30)
[2019-11-22] MEDS: Ketorolac 30 MG/ML SDV IV PRN ×3 (06:44→23:06)
[2019-11-22] MEDS: Nicotine 21 MG/24 Hr Patch TRDERM SCH (07:29)
[2019-11-22] MEDS: Albuterol/Ipratropium 3.0-0.5 MG/3 ML Neb Soln NEB SCH ×4 (07:30→20:04)
[2019-11-22] MEDS: Sodium Chloride 0.9% 1,000 ML IV SCH ×3 (07:30→23:07)
[2019-11-22] MEDS: methylPREDNISolone Sodium Succinate 125 MG/2 ML SDV IVPUSH SCH ×2 (16:43→23:06)
[2019-11-23] MEDS ORDERED: cefTRIAXone 1 GM Vial IVPUSH SCH ×2 (06:30→08:00)
[2019-11-23 07:28] LABS: CHLORIDE,CL 109 mEq/L (98-106); SODIUM,NA 146 mEq/L (136-145)
[2019-11-23 07:44] VITALS: BP 105/39; PULSE 78
[2019-11-23] MEDS: Albuterol/Ipratropium 3.0-0.5 MG/3 ML Neb Soln NEB SCH (07:47)
[2019-11-23] MEDS: methylPREDNISolone Sodium Succinate 125 MG/2 ML SDV IVPUSH SCH (07:47)
[2019-11-23] MEDS: Nicotine 21 MG/24 Hr Patch TRDERM SCH (07:48)
[2019-11-23] MEDS ORDERED: Enoxaparin 40 MG/0.4 ML Syringe SUBCUT SCH (08:00)
[2019-11-23] MEDS: Ketorolac 30 MG/ML SDV IV PRN (08:01)
--- NOTE | 2019-11-23 09:09 | PCM.DCSUM1 ---
Discharge Summary - Hospital Course Free Text/Narrative:: Frida is a 54 year old female who presented to ER with complaints of severe shortness of breath. History of chronic COPD, typically does not wear oxygen at home. Noted at 2 pm the day prior, started having increased symptoms and progressively got worse. No chest pain. No sinus congestion, fever, has chronic cough. Oxygen sats on room air on presentation were in the upper 60s. Labs done were all essentially normal. Chest xray showed large left pneumothorax. Chest tube was placed. Patient had requested to not be transferred knowing the risk without surgeon or pulmonary care here in [place]. Admitted for chest tube cares, oxygen to keep sats greater than 92% . Diagnosis: Stroke: No Modified [place] Scale: No Symptoms at All Modified Rod Scale Score: 0 - Discharge Data Discharge Date: 11/23/19 Discharge Disposition: DC/Tfer to Acute Hospital 02 Condition: Undetermined - Referral to Home Health Primary Care Physician: Yvette Moy PA-C - Patient Summary/Data Complications: none Hospital Course: Patient continues to have increased work of breathing. Feels less shortness of breath than on admission, since chest tube was placed. Oxygen sats 92% on 2 liters. She denies increased pain, controlled with pain meds. Chest xray done this am does continue to show small pneumothorax, unchanged from post-tube placement. Patient has had 2 other pneumothorax in the past, one traumatic, one not. Had previously been on oxygen at home. WBC remains normal at 6.3. Hemoglobin 12.5. Sodium 146. Potassium 4.2. Blood pressure this am 105/39. pulse 78. Respirations 18. Did contact Dr. Vizcaino at [facility] due to ongoing pneumothorax. Agreed to accept the patient in transfer. Patient aware that we recommend she be at a higher level of care due to persistent pneumothorax as well as recurrence. Needs pulmonology care. Will transfer per ALS as may require further intervention due to severe COPD and recurring pneumothorax. - Patient Instructions Other/Special Instructions: Transfer to [facility] to Dr. Vizcaino - Discharge Plan *PRESCRIPTION DRUG MONITORING PROGRAM REVIEWED*: Not Applicable *COPY OF PRESCRIPTION DRUG MONITORING REPORT IN PATIENT [place]: Not Applicable Home Medications: Home Meds Albuterol Sulfate [Proair Hfa] 2 puff INH QID PRN 04/28/18 [History] Budesonide/Formoterol Fumarate [Symbicort 160-4.5 Mcg Inhaler] 2 puff INH BID [History] Albuterol/Ipratropium [DuoNeb 3.0-0.5 MG/3 ML] 3 ml NEB QIDRT #1 box 05/01/18 [ Rx] Forms: ED Department Discharge Referrals: Yvette Moy PA-C [Primary Care Provider] - - Discharge Summary/Plan Comment DC Time >30 min.: Yes Discharge Summary/Plan Comment: Transfer ALS to [facility], Dr. Vizcaino Time for transfer arrangements 15 minutes Time with patient 20 minutes Time for documentation 10 minutes - General Info Date of Service: 11/23/19 Admission Dx/Problem (Free Text: Spontaneous pneumothorax Functional Status: Reports: Pain Controlled, Tolerating Diet, Ambulating - Review of Systems General: Reports: Weakness, Fatigue, Malaise HEENT: Denies: Sinus Congestion, Sore Throat Pulmonary: Reports: Shortness of Breath, Cough Cardiovascular: Denies: Chest Pain, Edema, Lightheadedness Gastrointestinal: Denies: Abdominal Pain, Nausea, Vomiting Genitourinary: Reports: No Symptoms Musculoskeletal: Reports: No Symptoms Skin: Reports: No Symptoms Neurological: Reports: Weakness - Patient Data Vitals - Most Recent: Last Vital Signs Temp 98 F 11/23/19 07:44 Pulse 78 11/23/19 07:44 Resp 18 11/23/19 07:44 BP 105/39 L 11/23/19 07:44 Pulse Ox 98 11/23/19 07:44 Weight - Most Recent: 93 lb 8 oz I&O - Last 24 hours: Intake & Output 11/22/19 11/23/19 11/23/19 22:59 06:59 14:59 Intake Total 1000 244 Balance 1000 244 Lab Results - Last 24 hrs: Laboratory Results - last 24 hr 11/23/19 11/23/19 Range/Units 07:00 07:00 WBC 6.3 (5.0-10.0) 10^3/uL RBC 3.65 L (4.00-5.50) 10^6/uL Hgb 12.5 (12.0-16.0) g/dL Hct 37.3 (37.0-47.0) % MCV 102.2 H (82.0-94.0) fL MCH 34.2 H (27.0-32.0) pg MCHC 33.5 (33.0-38.0) g/dL RDW Coeff of Talia 11.7 (11.0-15.0) % Plt Count 159 (150-400) 10^3/uL Neut % (Auto) 85.5 H (35-85) % Lymph % (Auto) 7.3 L (10-55) % [place] % (Auto) 7.0 (0-16) % Eos % (Auto) 0 (0-5) % Baso % (Auto) 0.2 (0-3) % Neut # (Auto) 5.38 (1.80-7.00) 10^3/uL Lymph # (Auto) 0.46 L (1.00-4.80) 10^3/uL [place] # (Auto) 0.44 (0.00-0.80) 10^3/uL Eos # (Auto) 0.00 (0.00-0.45) 10^3/uL Baso # (Auto) 0.01 10^3/uL Sodium 146 H (136-145) mEq/L Potassium 4.2 (3.5-5.0) mEq/L Chloride 109 H (98-106) mEq/L Carbon Dioxide 36 H (21-32) mmol/L BUN 12 (7-18) mg/dL Creatinine 0.4 L (0.6-1.0) mg/dL Est Cr Clr Drug Dosing 107.65 mL/min Estimated GFR (MDRD) > 60 (>=60) mL/min Glucose 122 H (75-99) mg/dL Calcium 7.8 L (8.4-10.1) mg/dL Med Orders - Current: Current Medications Albuterol/Ipratropium (Duoneb 3.0-0.5 Mg/3 Ml) 3 ml NEB QIDRT [facility] Last Admin: 11/23/19 07:47 Dose: 3 ml Ceftriaxone Sodium (Rocephin) 1 gm IVPUSH Q24H [facility] Last Admin: 11/23/19 07:46 Dose: 1 gm Enoxaparin Sodium (Lovenox) 40 mg SUBCUT Q24H [facility] Last Admin: 11/23/19 07:48 Dose: 40 mg Sodium Chloride (Normal Saline) 1,000 mls @ 80 mls/hr IV ASDIRECTED [facility] Last Admin: 11/22/19 23:07 Dose: 80 mls/hr Ketorolac Tromethamine (Toradol) 30 mg IV Q6H PRN PRN Reason: Pain (moderate 4-6) Last Admin: 11/23/19 08:01 Dose: 30 mg Methylprednisolone Sodium Succinate (Solu-Medrol) 60 mg IVPUSH Q8H [facility] Last Admin: 11/23/19 07:47 Dose: 60 mg Nicotine (Habitrol) 21 mg TRDERM DAILY [facility] Last Admin: 11/23/19 07:48 Dose: 21 mg Ondansetron HCl (Zofran Odt) 4 mg PO Q6H PRN PRN Reason: nausea, able to take PO Oxycodone HCl (Oxycodone) 5 mg PO Q4H PRN PRN Reason: Pain (moderate 4-6) Last Admin: 11/23/19 08:02 Dose: 5 mg Sodium Chloride (Saline Flush) 10 ml FLUSH ASDIRECTED PRN PRN Reason: Keep Vein Open Discontinued Medications Albuterol/Ipratropium (Duoneb 3.0-0.5 Mg/3 Ml) 6 ml NEB ONETIME ONE Stop: 11/22/19 04:53 Last Admin: 11/22/19 05:54 Dose: 6 ml Albuterol/Ipratropium (Duoneb 3.0-0.5 Mg/3 Ml) 3 ml NEB Q6H [facility] Last Admin: 11/22/19 07:15 Dose: Not Given Ceftriaxone Sodium (Rocephin) 2 gm IVPUSH ONETIME ONE Stop: 11/22/19 06:12 Last Admin: 11/22/19 07:29 Dose: 2 gm Ceftriaxone Sodium (Rocephin) 1 gm IVPUSH Q24H [facility] Enoxaparin Sodium (Lovenox) 30 mg SUBCUT Q24H [facility] Last Admin: 11/22/19 07:28 Dose: 30 mg Lidocaine HCl (Xylocaine 1%) Confirm Administered Dose 20 ml .ROUTE .STK-MED ONE Stop: 11/22/19 05:13 Last Admin: 11/22/19 05:57 Dose: Not Given Lidocaine HCl (Xylocaine 1%) 20 ml INJECT ONETIME ONE Stop: 11/22/19 05:56 Last Admin: 11/22/19 05:57 Dose: 20 ml Methylprednisolone Sodium Succinate (Solu-Medrol) 125 mg IVPUSH ONETIME ONE Stop: 11/22/19 06:16 Last Admin: 11/22/19 07:29 Dose: 125 mg Methylprednisolone Sodium Succinate (Solu-Medrol) 60 mg IVPUSH Q8H [facility] Last Admin: 11/22/19 07:09 Dose: Not Given Midazolam HCl (Versed 1 Mg/Ml) Confirm Administered Dose 6 mg .ROUTE .STK-MED ONE Stop: 11/22/19 05:09 Last Admin: 11/22/19 05:54 Dose: Not Given Midazolam HCl (Versed 1 Mg/Ml) 2.5 mg IVPUSH ONETIME ONE Stop: 11/22/19 05:34 Last Admin: 11/22/19 05:56 Dose: 2.5 mg - Exam Quality Assessment: Reports: Supplemental Oxygen General: Reports: Alert, Oriented HEENT: Reports: Mucous Membr. Moist/[place] Neck: Reports: Supple Lungs: Reports: Decreased Breath Sounds, Other (increased work of breathing) Cardiovascular: Reports: Regular Rate, Regular Rhythm GI/Abdominal Exam: Normal Bowel Sounds, Soft, Non-Tender Extremities: Normal Inspection, No Pedal Edema Skin: Reports: Warm, Dry Neurological: Reports: No New Focal Deficit
== END 2019-11-23 09:30 | DRG 201 ==
LOC: CC.ED 04:38 → CC.MS 06:14 → UNDOADMIN 06:45 → CC.MS 06:45
PROVIDERS: ADMIT Nurse Practitioner; ATTEND Family Medicine
PROC: 0W9B30Z Drainage of Left Pleural Cavity with Drainage Device, Percutaneous Approach (ICD-10-PCS; principal; 2019-11-22)
DX: J93.9 Pneumothorax, unspecified (principal); J43.9 Emphysema, unspecified; G43.909 Migraine, unspecified, not intractable, without status migrainosus; Z79.899 Other long term (current) drug therapy; Z79.51 Long term (current) use of inhaled steroids; Z88.5 Allergy status to narcotic agent; Z99.81 Dependence on supplemental oxygen
CPT/HCPCS: 32551; 36415; 36600; 71045; 71046; 80048; 80053; 82550; 82803; 83615; 84484; 85025; 85610; 85730; 93005; 94640; 96374; 99291-25; A9270-GY; J0696; J1650; J1885; J2001; J2250; J2930; J7030; J7620-GY

== ENCOUNTER 2021-11-26 20:17 | Emergency (ER) | payer MEDICAID, SELFPAY ==
[2021-11-26 20:43] VITALS: BP 113/71
[2021-11-26 20:44] VITALS: PULSE 103
[2021-11-26 20:52] LABS: CHLORIDE,CL 98 mEq/L (98-106); SODIUM,NA 139 mEq/L (136-145)
[2021-11-26] MEDS: methylPREDNISolone Sodium Succinate 125 MG/2 ML SDV IVPUSH STA (21:42)
== END 2021-11-26 21:55 | disposition home or self-care (01) ==
LOC: CC.ED 20:17
DX: J43.9 Emphysema, unspecified (principal); J10.1 Influenza due to other identified influenza virus with other respiratory manifestations; Z88.5 Allergy status to narcotic agent; Z20.822 Contact with and (suspected) exposure to COVID-19
CPT/HCPCS: 36415; 71045; 80053; 85025; 86140; 87804; 96374; 99284; 99284-25; J2930; U0002

== ENCOUNTER 2022-06-25 10:44 | Emergency (ER) | payer MEDICAID ==
[2022-06-25] MEDS ORDERED: Sodium Chloride 0.9% 10 ML Syringe FLUSH PRN (11:29)
[2022-06-25] MEDS: Ondansetron 4 MG/2 ML SDV IVPUSH SCH (11:30)
[2022-06-25] MEDS: Sodium Chloride 0.9% 1,000 ML IV ONE (11:38)
[2022-06-25 11:40] LABS: CHLORIDE,CL 102 mEq/L (98-106); ESTIMATED GFR 110 mL/min (>=60); SODIUM,NA 144 mEq/L (136-145)
[2022-06-25 12:45] VITALS: BP 129/81; PULSE 97
[2022-06-25] MEDS: Take Home: Ondansetron 4 MG Tab.DIS, 2 Tab Pack PO ONE (13:49)
== END 2022-06-25 14:05 | disposition home or self-care (01) ==
LOC: CC.ED 10:44
DX: H81.13 Benign paroxysmal vertigo, bilateral (principal); J44.9 Chronic obstructive pulmonary disease, unspecified; Z88.5 Allergy status to narcotic agent; Z20.822 Contact with and (suspected) exposure to COVID-19
CPT/HCPCS: 36415; 70450; 80053; 83735; 85025; 96361; 96374; 99284; 99284-25; A9270-GY; J2405; J7030; U0002